=== PATIENT | male | born 1995 | race Caucasian/White ===

== ENCOUNTER 2022-02-24 15:00 | Emergency (ER) | payer OTHER ==
[~2022-02-24] VITALS: Ht 185.4 cm; Wt 83.6 kg
[2022-02-24] MEDS ORDERED: LIDOcaine 1% w/EPI 1:100,000 30ml vial (MDV) IJ ONE (15:20)
[2022-02-24] MEDS ORDERED: ketorolac trometh inj. 60 MG/2 ML VIAL IM ONE (15:20)
[2022-02-24] MEDS ORDERED: CEPH-585 PO (16:12)
[2022-02-24] MEDS ORDERED: bacitracin 15gm ointment TP ONE (16:20)
[2022-02-24 16:30] VITALS: BP 148/92
== END 2022-02-24 16:40 | disposition home or self-care (01) ==
LOC: ER 15:00
DX: S51.812A Laceration without foreign body of left forearm, initial encounter (principal); W01.0XXA Fall on same level from slipping, tripping and stumbling without subsequent striking against object, initial encounter; Y93.89 Activity, other specified; Y92.89 Other specified places as the place of occurrence of the external cause; Y99.8 Other external cause status
CPT/HCPCS: 12002; 96372; 99283; J1885; A6449